=== PATIENT | female | born 1940 ===

== ENCOUNTER → 2016-10-26 13:08 | Outpatient (CLI) | payer MEDICARE ==
[2016-10-26 13:54] LABS: HEMOGLOBIN A1C 6.4 % (4.8-6.0)
== END | disposition home or self-care (01) ==
LOC: D.LABREF 13:08
PROVIDERS: Family Medicine
DX: E11.9 Type 2 diabetes mellitus without complications (principal)

== ENCOUNTER → 2017-02-13 20:00 | Outpatient (CLI) | payer MEDICARE | END | disposition home or self-care (01) | LOC: D.LABREF 20:00 | DX: E11.9 Type 2 diabetes mellitus without complications (principal) ==

== ENCOUNTER → 2017-02-22 16:49 | Outpatient (CLI) | payer MEDICARE ==
[2017-02-22 17:40] LABS: HEMOGLOBIN A1C 6.6 % (4.8-6.0)
== END | disposition home or self-care (01) ==
LOC: D.LABREF 16:49
PROVIDERS: Family Medicine
DX: E11.9 Type 2 diabetes mellitus without complications (principal); L03.116 Cellulitis of left lower limb